=== PATIENT | female | born 1940 | race Two or more races ===

== ENCOUNTER 2023-11-22 18:54 | Emergency (ER) | payer OTHER ==
[~2023-11-22] VITALS: Ht 162.6 cm; Wt 102.1 kg
[2023-11-22] MEDS ORDERED: METOPROLOL SUCCINATE 25 MG TAB.SR.24H ONE (21:41)
[2023-11-22] MEDS: METOPROLOL SUCCINATE 25 MG TAB.SR.24H PO SCH (21:56)
[2023-11-22 22:03] VITALS: BP 189/86; TEMP 98; O2SAT 99
== END 2023-11-22 22:04 | disposition home or self-care (01) ==
LOC: ER 18:57
DX: S01.81XA Laceration without foreign body of other part of head, initial encounter (principal); I10 Essential (primary) hypertension; E11.9 Type 2 diabetes mellitus without complications; Z86.79 Personal history of other diseases of the circulatory system; W01.0XXA Fall on same level from slipping, tripping and stumbling without subsequent striking against object, initial encounter; Y93.89 Activity, other specified; Y92.481 Parking lot as the place of occurrence of the external cause; Y99.8 Other external cause status
CPT/HCPCS: 70450-TC; 70486-TC; 72125-TC; 73564-TC; 73590-TC